=== PATIENT | male | born 1975 | race Caucasian/White ===

== ENCOUNTER 2016-08-13 19:55 | Emergency (ER) | payer SELFPAY ==
[2016-08-13 21:13] VITALS: BP 136/91
== END 2016-08-13 21:13 | disposition home or self-care (01) ==
LOC: ED 19:55
DX: L25.9 Unspecified contact dermatitis, unspecified cause (principal)
CPT/HCPCS: J7512

== ENCOUNTER 2016-10-12 08:21 | Emergency (ER) | payer SELFPAY ==
[2016-10-12 09:06] LABS: PLATELET COUNT 227 x10^3mcL (130-400); RED CELL DISTRIBUTION WIDTH 12.8 % (11.5-14.5)
[2016-10-12 09:11] LABS: BASOPHIL % 2.6 % (0-2)
[2016-10-12 09:20] LABS: CALCIUM 8.3 mg/dL (8.5-10.1); CARBON DIOXIDE 30.5 mmol/L (21-32); CHLORIDE SERUM 101 mmol/L (98-107); CREATININE SERUM 0.8 mg/dL (0.7-1.3); GFR1 > 60 mL/min; GLUCOSE SERUM 94 mg/dL (74-106); POTASSIUM SERUM 3.8 mmol/L (3.5-5.1); SODIUM SERUM 140 mmol/L (136-145)
[2016-10-12 09:24] LABS: ALBUMIN 3.7 g/dL (3.4-5.0); ALKALINE PHOSPHATASE 89 U/L (46-116); ALT/SGPT 28 U/L (16-63); AST/SGOT 16 U/L (15-37); BILIRUBIN TOTAL 0.4 mg/dL (0.20-1.00); LIPASE 592 IU/L (73-393); TOTAL PROTEIN, SERUM 7.2 g/dL (6.4-8.2)
[2016-10-12 11:37] VITALS: BP 130/82
== END 2016-10-12 11:37 | disposition home or self-care (01) ==
LOC: ED 08:21
PROVIDERS: Emergency Medicine
DX: K85.90 Acute pancreatitis without necrosis or infection, unspecified (principal); R03.0 Elevated blood-pressure reading, without diagnosis of hypertension; F12.90 Cannabis use, unspecified, uncomplicated
CPT/HCPCS: 36415; J3010; Q0162

== ENCOUNTER 2017-07-18 19:41 | Emergency (ER) | payer SELFPAY ==
[~2017-07-18] VITALS: Ht 177.8 cm; Wt 78.5 kg
[2017-07-18 20:06] VITALS: Ht 177.8 cm; Wt 78.5 kg
[2017-07-18 20:48] LABS: BASOPHIL % 0.8 % (0-2); PLATELET COUNT 220 x10^3mcL (130-400); RED CELL DISTRIBUTION WIDTH 13.9 % (11.5-14.5)
[2017-07-18 20:52] LABS: CALCIUM 8.5 mg/dL (8.5-10.1); CARBON DIOXIDE 29.1 mmol/L (21-32); CHLORIDE SERUM 107 mmol/L (98-107); CREATININE SERUM 0.8 mg/dL (0.7-1.3); GFR1 > 60 mL/min; GLUCOSE SERUM 98 mg/dL (74-106); POTASSIUM SERUM 3.4 mmol/L (3.5-5.1); SODIUM SERUM 146 mmol/L (136-145)
[2017-07-18 20:56] LABS: ALBUMIN 3.9 g/dL (3.4-5.0); ALKALINE PHOSPHATASE 87 U/L (46-116); ALT/SGPT 38 U/L (16-63); AST/SGOT 23 U/L (15-37); LIPASE 221 IU/L (73-393); TOTAL PROTEIN, SERUM 7.1 g/dL (6.4-8.2)
[2017-07-18 21:03] LABS: AMYLASE 143 U/L (25-115)
[2017-07-18 23:13] LABS: UA SPECIFIC GRAVITY 1.025 (1.005-1.035); microscopic required? YES; urine erythrocyte 3+ (NEGATIVE)
[2017-07-18 23:32] VITALS: BP 138/80
== END 2017-07-18 23:32 | disposition home or self-care (01) ==
LOC: ED 19:41
PROVIDERS: Emergency Medicine
DX: N20.0 Calculus of kidney (principal)
CPT/HCPCS: J1885; J2270; J2405

== ENCOUNTER 2017-07-22 10:35 | Emergency (ER) | payer SELFPAY ==
[~2017-07-22] VITALS: Ht 177.8 cm; Wt 78.9 kg
[2017-07-22 10:37] VITALS: BP 134/88; Ht 177.8 cm; Wt 78.9 kg
== END 2017-07-22 12:00 | disposition home or self-care (01) ==
LOC: ED 10:35
DX: N20.0 Calculus of kidney (principal)
CPT/HCPCS: J1885; J7030

== ENCOUNTER 2017-09-28 12:55 | Inpatient (IN) | payer SELFPAY ==
[~2017-09-28] VITALS: Ht 170.2 cm; Wt 87.8 kg
[2017-09-28 13:04] VITALS: Ht 170.2 cm; Wt 87.8 kg
[2017-09-28 13:19] LABS: BASOPHIL % 0.7 % (0-2); PLATELET COUNT 222 x10^3mcL (130-400); RED CELL DISTRIBUTION WIDTH 13.6 % (11.5-14.5)
[2017-09-28 13:44] LABS: ALBUMIN 3.6 g/dL (3.4-5.0); ALKALINE PHOSPHATASE 84 U/L (46-116); ALT/SGPT 61 U/L (16-63); AST/SGOT 28 U/L (15-37); BILIRUBIN TOTAL 0.49 mg/dL (0.20-1.00); CALCIUM 8.5 mg/dL (8.5-10.1); CHLORIDE SERUM 103 mmol/L (98-107); CREATININE SERUM 0.8 mg/dL (0.7-1.3); GFR1 > 60 mL/min; GLUCOSE SERUM 113 mg/dL (74-106); LIPASE 337 IU/L (73-393); POTASSIUM SERUM 4.1 mmol/L (3.5-5.1); SODIUM SERUM 135 mmol/L (136-145); TOTAL PROTEIN, SERUM 7.3 g/dL (6.4-8.2)
[2017-09-28 13:46] LABS: AMYLASE 158 U/L (25-115)
[2017-09-28 16:28] LABS: MAGNESIUM 1.8 mg/dL (1.8-2.4); PHOSPHOROUS 2.4 mg/dL (2.5-4.9)
[2017-09-28 16:32] LABS: CHOLESTEROL/HDL RATIO 3.3
[2017-09-28 16:37] LABS: UA SPECIFIC GRAVITY 1.015 (1.005-1.035); microscopic required? YES; urine erythrocyte TRACE (NEGATIVE)
[2017-09-28 16:38] LABS: FREE T4 0.65 ng/dL (0.76-1.46); FREE THYROXINE INDEX 1.7 ug/dL (1.4-4.5); T4(THYROXINE) 5.9 ug/dL (4.7-13.3)
[2017-09-28 16:43] LABS: AMPHETAMINE QUAL UR NONE DETECTED (See below)
[2017-09-28 16:59] VITALS: BP 112/71
[2017-09-28 17:34] LABS: T3 TOTAL 0.99 ng/mL
[2017-09-28 20:45] VITALS: BP 109/64
[2017-09-29 05:28] VITALS: BP 103/55
[2017-09-29 07:50] LABS: BASOPHIL % 0.5 % (0-2); PLATELET COUNT 181 x10^3mcL (130-400); RED CELL DISTRIBUTION WIDTH 13.9 % (11.5-14.5)
[2017-09-29 08:32] LABS: CALCIUM 7.9 mg/dL (8.5-10.1); CARBON DIOXIDE 26.3 mmol/L (21-32); CHLORIDE SERUM 106 mmol/L (98-107); CREATININE SERUM 0.8 mg/dL (0.7-1.3); GFR1 > 60 mL/min; GLUCOSE SERUM 108 mg/dL (74-106); PHOSPHOROUS 3.2 mg/dL (2.5-4.9); POTASSIUM SERUM 4.2 mmol/L (3.5-5.1); SODIUM SERUM 137 mmol/L (136-145)
[2017-09-29 09:40] VITALS: BP 94/52
[2017-09-29 10:00] VITALS: BP 97/53
[2017-09-29 10:15] VITALS: BP 97/53
[2017-09-29 11:46] VITALS: BP 95/59
[2017-09-29] MEDS ORDERED: PROTONIX40 MG PO (12:08)
[2017-09-29 13:47] VITALS: BP 95/59
== END 2017-09-29 18:05 | disposition home or self-care (01) | DRG 380 ==
LOC: ED 12:55 → DU 15:25
PROVIDERS: Emergency Medicine; Internal Medicine; Internal Medicine Gastroenterology
PROC: 0DB68ZX Excision of Stomach, Via Natural or Artificial Opening Endoscopic, Diagnostic (ICD-10-PCS; principal; 2017-09-29 08:45)
DX: K22.11 Ulcer of esophagus with bleeding (principal); F17.210 Nicotine dependence, cigarettes, uncomplicated; N17.0 Acute kidney failure with tubular necrosis; E78.5 Hyperlipidemia, unspecified; E78.00 Pure hypercholesterolemia, unspecified; K44.9 Diaphragmatic hernia without obstruction or gangrene; K21.9 Gastro-esophageal reflux disease without esophagitis; F12.90 Cannabis use, unspecified, uncomplicated; Z87.442 Personal history of urinary calculi
CPT/HCPCS: 43235; 83880; 84439; 87046; 87046-59; C9113; J1200; J1610; J2250; J2310; J2405; J3010; J3490; J7030; Q0092

== ENCOUNTER 2017-11-07 07:26 | Emergency (ER) | payer SELFPAY ==
[~2017-11-07] VITALS: Ht 177.8 cm; Wt 86.2 kg
[~2017-11-07 07:26] MED LIST: PROTONIX40 MG PO
[2017-11-07 07:33] VITALS: Ht 177.8 cm; Wt 86.2 kg
[2017-11-07 08:45] LABS: BASOPHIL % 0.4 % (0-2); PLATELET COUNT 265 x10^3mcL (130-400); RED CELL DISTRIBUTION WIDTH 14.2 % (11.5-14.5)
[2017-11-07 08:50] LABS: CALCIUM 8.2 mg/dL (8.5-10.1); CHLORIDE SERUM 105 mmol/L (98-107); CREATININE SERUM 0.9 mg/dL (0.7-1.3); GFR1 > 60 mL/min; GLUCOSE SERUM 119 mg/dL (74-106); POTASSIUM SERUM 4.6 mmol/L (3.5-5.1); SODIUM SERUM 141 mmol/L (136-145)
[2017-11-07 08:54] LABS: ALBUMIN 3.5 g/dL (3.4-5.0); ALKALINE PHOSPHATASE 85 U/L (46-116); ALT/SGPT 31 U/L (16-63); AST/SGOT 28 U/L (15-37); BILIRUBIN TOTAL 0.28 mg/dL (0.20-1.00); LIPASE 218 IU/L (73-393); TOTAL PROTEIN, SERUM 7.4 g/dL (6.4-8.2)
[2017-11-07 09:55] LABS: microscopic required? YES; urine erythrocyte 1+ (NEGATIVE)
[2017-11-07 12:41] LABS: BASOPHIL % 0.6 % (0-2); PLATELET COUNT 279 x10^3mcL (130-400)
[2017-11-07 12:44] LABS: RED CELL DISTRIBUTION WIDTH 14.9 % (11.5-14.5)
[2017-11-07 14:15] VITALS: BP 126/77
== END 2017-11-07 14:15 | disposition home or self-care (01) ==
LOC: ED 07:26
PROVIDERS: Emergency Medicine
DX: K21.0 Gastro-esophageal reflux disease with esophagitis (principal); K44.9 Diaphragmatic hernia without obstruction or gangrene; K57.90 Diverticulosis of intestine, part unspecified, without perforation or abscess without bleeding; D64.9 Anemia, unspecified; K92.0 Hematemesis
CPT/HCPCS: C9113; J1885; J2405; J7030

== ENCOUNTER 2018-07-06 11:43 | Emergency (ER) | payer OTHER ==
[~2018-07-06] VITALS: Ht 177.8 cm; Wt 83.5 kg
[2018-07-06 11:52] VITALS: Ht 177.8 cm; Wt 83.5 kg
[2018-07-06 12:39] LABS: BASOPHIL % 1.7 % (0-2); PLATELET COUNT 216 x10^3mcL (130-400); RED CELL DISTRIBUTION WIDTH 13.3 % (11.5-14.5)
[2018-07-06 12:52] LABS: CARBON DIOXIDE 29.9 mmol/L (21-32); CHLORIDE SERUM 103 mmol/L (98-107); GFR1 > 60 mL/min; GLUCOSE SERUM 133 mg/dL (74-106); POTASSIUM SERUM 3.8 mmol/L (3.5-5.1); SODIUM SERUM 142 mmol/L (136-145)
[2018-07-06 12:57] LABS: ALBUMIN 4.1 g/dL (3.4-5.0); ALKALINE PHOSPHATASE 97 U/L (46-116); ALT/SGPT 42 U/L (16-63); AST/SGOT 20 U/L (15-37); BILIRUBIN TOTAL 0.64 mg/dL (0.20-1.00); LIPASE 614 IU/L (73-393); TOTAL PROTEIN, SERUM 7.6 g/dL (6.4-8.2)
[2018-07-06 15:33] LABS: AMPHETAMINE QUAL UR POSITIVE (See below)
[2018-07-06 17:02] VITALS: BP 133/52
== END 2018-07-06 17:29 | disposition home or self-care (01) ==
LOC: ED 11:43
PROVIDERS: Emergency Medicine
DX: R07.89 Other chest pain (principal); K21.9 Gastro-esophageal reflux disease without esophagitis; F17.210 Nicotine dependence, cigarettes, uncomplicated; Z87.442 Personal history of urinary calculi
CPT/HCPCS: 36415; 85378; 99406

== ENCOUNTER 2019-02-18 15:20 | Emergency (ER) | payer OTHER | END 2019-02-18 16:17 | disposition left against medical advice (07) | LOC: ED 15:20 | DX: Z53.21 Procedure and treatment not carried out due to patient leaving prior to being seen by health care provider (principal) ==